=== PATIENT | male | born 1985 | race Caucasian/White ===

== ENCOUNTER 2016-12-19 06:03 | Day surgery (SDC) | payer MEDICAID ==
[~2016-12-19] VITALS: Ht 167.6 cm; Wt 75.9 kg
[~2016-12-19 06:03] MED LIST: CeFAZolin 2 GM/DEXTROSE 50 ML IV ONE; NOCURR; RINGERS SOLUTION,LACTATED 1,000 ML IV ONE
[2016-12-19] MEDS ORDERED: LIDOCAINE HCL 2%/EPI 1:200,000/PF 10 ML VIAL ONE (06:41)
[2016-12-19] MEDS ORDERED: BUPIVACAINE HCL/PF 0.5% 30 ML VIAL ONE (06:41)
[2016-12-19] MEDS ORDERED: GUM MASTIC/STORAX/MSAL/ALCOHOL LIQUID 0.67 ML VIAL TP ONE ×2 (06:42→08:53)
[2016-12-19] MEDS ORDERED: MEPERIDINE-PF 25 MG/ML SYRINGE IVP PRN (07:15)
[2016-12-19] MEDS ORDERED: FentaNYL CITRATE-PF 100 MCG/2 ML VIAL IVP PRN (07:15)
[2016-12-19] MEDS ORDERED: HYDROmorphone 2 MG/ML SYRINGE IVP PRN (07:15)
[2016-12-19] MEDS ORDERED: CeFAZolin 2 GM/DEXTROSE 50 ML IV ONE (07:30)
[2016-12-19] MEDS ORDERED: OXYGEN THERAPY IH SCH (08:00)
[2016-12-19] MEDS ORDERED: HYDROCODONE/ACETAMINOPHEN 5-325 MG TABLET PO PRN (09:00)
[2016-12-19] MEDS ORDERED: ACETAMINOPHEN 500 MG TABLET PO PRN (09:00)
[2016-12-19] MEDS ORDERED: IBUPROFEN 600 MG TABLET PO PRN (09:00)
[2016-12-19] MEDS ORDERED: RINGERS SOLUTION,LACTATED 1,000 ML IV ONE (09:05)
[2016-12-19] MEDS ORDERED: IBUPROFEN 800 MG TABLET ONE (10:20)
[2016-12-19] MEDS ORDERED: IBUPROFEN 800 MG TABLET PO PRN (10:25)
[2016-12-19] MEDS ORDERED: HYDROmorphone HCL 2 MG TABLET PO ONE (12:00)
[2016-12-19] MEDS ORDERED: DEXAMETHASONE SOD PHOS 4 MG/ML VIAL IVP ONE (12:00)
[2016-12-19] MEDS ORDERED: FentaNYL CITRATE-PF 100 MCG/2 ML VIAL IVP ONE (12:00)
[2016-12-19] MEDS ORDERED: GLYCOPYRROLATE 0.2 MG/ML VIAL IM ONE (12:00)
[2016-12-19] MEDS ORDERED: PROPOFOL 1% 20 ML VIAL IVP ONE (12:00)
[2016-12-19] MEDS ORDERED: ONDANSETRON HCL 4 MG/2 ML VIAL IVP ONE (12:00)
[2016-12-19] MEDS ORDERED: LIDOCAINE HCL/PF 2% 5 ML VIAL INJ ONE (12:00)
[2016-12-19] MEDS ORDERED: 0.9% SODIUM CHLORIDE 10 ML VIAL IVP ONE (12:00)
[2016-12-19] MEDS ORDERED: MIDAZOLAM HCL 2 MG/2 ML VIAL IVP ONE (12:00)
[2016-12-19] MEDS ORDERED: NEOSTIGMINE METHYLSULFATE 1 MG/ML 10 ML VIAL IVP ONE (12:00)
[2016-12-19] MEDS ORDERED: METOCLOPRAMIDE HCL 5 MG/ML 2 ML VIAL IVP ONE (12:00)
== END 2016-12-19 11:55 | disposition home or self-care (01) ==
LOC: SURGERY 06:03
PROVIDERS: ATTEND Surgery
DX: K40.30 Unilateral inguinal hernia, with obstruction, without gangrene, not specified as recurrent (principal); Z72.89 Other problems related to lifestyle; Z98.890 Other specified postprocedural states; Z87.442 Personal history of urinary calculi; Z87.891 Personal history of nicotine dependence
CPT/HCPCS: 49650; C1781; J0690; J1100; J2250; J2405; J2704; J2765; J3010; J3490 ×4; J7120; 88302